=== PATIENT | male | born 1995 | race Caucasian/White ===

== ENCOUNTER 2019-03-26 16:07 | Emergency (ER) | payer OTHER ==
[~2019-03-26] VITALS: Ht 188 cm; Wt 83.0 kg
[2019-03-26 16:13] VITALS: BP 140/80
[2019-03-26] MEDS ORDERED: HYDR30SU6 (16:55)
== END 2019-03-26 17:10 | disposition home or self-care (01) ==
LOC: ER 16:08
DX: K62.5 Hemorrhage of anus and rectum (principal)
CPT/HCPCS: 99282